=== PATIENT | female | born 1940 | race Caucasian/White ===

== ENCOUNTER 2017-12-02 10:47 | Day surgery (SDC) | payer MEDICARE, OTHER ==
[~2017-12-02 10:47] MED LIST: Buffered Lidocaine 0.9% SYRIN* 5 ML/SYR SYRINGE INTRADERM ONE; Sodium Citrate/Citric Acid* 15 ML UDC PO ONE
[2017-12-02] MEDS ORDERED: Sodium Citrate/Citric Acid* 15 ML UDC ONE (10:48)
[2017-12-02] MEDS ORDERED: Buffered Lidocaine 0.9% SYRIN* 5 ML/SYR SYRINGE ONE (10:48)
[2017-12-02] MEDS ORDERED: Naloxone* 0.4 MG/ML 1 ML VIAL IV PRN (14:15)
[2017-12-02] MEDS ORDERED: DiMENhydriNATE IV* 50 MG/ML VIAL IV PUSH PRN (14:15)
[2017-12-02] MEDS ORDERED: Methylene Blue 0.5 %* 50 MG/10 ML AMP IV ONE (14:26)
[2017-12-02] MEDS ORDERED: Lidocaine 2% EPI 1:200000 MPF* 20 ML VIAL ONE (14:26)
[2017-12-02] MEDS ORDERED: Propofol* 10 MG/ML 20 ML BTL IV PUSH ONE (14:28)
[2017-12-02] MEDS ORDERED: Lidocaine 2% PF * 5 ML VIAL ONE (14:28)
[2017-12-02] MEDS ORDERED: fentaNYL* 50 MCG/ML 2 ML VIAL (100 MCG VIAL) ONE ×3 (14:30→16:04)
[2017-12-02] MEDS ORDERED: Glycopyrrolate IV* 0.2 MG/ML 1 ML VIAL ONE (15:13)
[2017-12-02] MEDS ORDERED: EPHEDrine (Pressors)* 50 MG/ML VIAL ONE (15:13)
[2017-12-02] MEDS ORDERED: Bacitracin OINTMENT* 0.5% 0.5 oz TUBE ONE (15:13)
[2017-12-02] MEDS: fentaNYL* 50 MCG/ML 2 ML VIAL (100 MCG VIAL) IV PRN ×5 (15:36→16:06)
[2017-12-02 16:43] VITALS: BP 157/72
--- NOTE | 2017-12-03 12:27 | OP ---
DATE OF OPERATION: 12/02/17 - LOCATED WITHIN [facility] DATE OF : 38 SURGEON: Thiago Grimes MD. PRE-OP DIAGNOSIS: Nasolabial cyst. POST-OP DIAGNOSIS: Nasolabial cyst. OPERATIVE PROCEDURE: Excision of nasolabial cyst. BRIEF HISTORY: This 77-year-old female had enlarging mass on the nasolabial area. MRI showed most likely a cystic structure. This was starting to deviate the septum. DESCRIPTION OF PROCEDURE: The patient was taken to the operating room. General anesthetic was given and the patient was intubated. The patient was prepped and draped in the usual fashion. A small amount of lidocaine with epinephrine was infiltrated in the buccal mucosa. A small incision was made in buccal mucosa to the midline anteriorly. Careful blunt and sharp dissection carried out until the cyst was identified carefully, elevating the cyst off the piriform aperture of the nose along the nasal floor and into the nasal cavity and was excised. There was a defect at the nasal mucosa. The oral incision was closed. Nasal defect was packed with Nu-Gauze with iodoform. A small Cheko pack was put in place to keep it in place. The patient was awakened, extubated, sent to recovery room in stable condition. Instrument count correct. Blood loss minimal. [id number] #: [id number] MTDD
== END 2017-12-02 17:05 | disposition home or self-care (01) ==
LOC: OR 10:47
PROVIDERS: ATTEND Otolaryngology
DX: K09.1 Developmental (nonodontogenic) cysts of oral region (principal); N18.3 Chronic kidney disease, stage 3 (moderate); E78.5 Hyperlipidemia, unspecified; R25.1 Tremor, unspecified; M10.9 Gout, unspecified; Z85.828 Personal history of other malignant neoplasm of skin; M19.90 Unspecified osteoarthritis, unspecified site
CPT/HCPCS: 88305; 88342; A9270-GY; J2704; J3010